=== PATIENT | male | born 1995 | race Hispanic/Latino ===

== ENCOUNTER 2016-07-11 19:25 | Emergency (ER) | payer OTHER ==
[~2016-07-11] VITALS: Ht 165.1 cm; Wt 62.0 kg
[~2016-07-11 19:25] MED LIST: HYDR-3797 PO
[2016-07-11 19:43] VITALS: BP 116/64; PULSE 71; RESP 20; O2SAT 97
[2016-07-11] MEDS ORDERED: Pantoprazole 4 mg/mL 10 mL Inj IVPUSH ONE (21:15)
[2016-07-11] MEDS ORDERED: 0.9% Sodium Chloride 1,000 ML IV ONE (21:15)
[2016-07-11] MEDS ORDERED: Ondansetron 2 mg/mL 2 mL Inj IVPUSH ONE (21:15)
--- NOTE | 2016-07-11 21:17 | ED.REPORT ---
HPI-Abd Pain M Under 40 Date of Service Jul 11, 2016 ED Provider: Vahid Luciano MD A 21 year old male with a history of renal calculi and a heart murmur presents to the ED with constant right flank pain onset six months ago, worsening today. The patient also reports nausea, intermittent diarrhea, and reduced appetite, as well as RLQ and epigastric abdominal pain. He denies vomiting, hematuria, or fever. The patient has been seen many times in the ED and by his PCP for these symptoms and was recently diagnosed with a renal calculi, which his urologist said he passed a few days ago. However, the patient's symptoms have not resolved. He denies prior abdominal surgeries. Nursing Notes Stated Complaint: RT SIDE PAIN Chief Complaint: Male Abdominal Pain Nursing Notes Reviewed: Yes Allergies: Coded Allergies: No Known Allergies (Verified Allergy, Unknown, 01/21/16) Scheduled PRN Hydroxyzine Pamoate (HydrOXYzine Pamoate) 25 Mg Capsule 25 MG PO Q6 PRN PRN For Anxiety or Agitation Ibuprofen (Ibuprofen) 600 Mg Tablet 600 MG PO QID PRN PRN For Pain General Time Seen by MD: 21:15 Chief Complaint Flank pain right Hx Obtained From: Patient Arrived By: Walk-in Sudden in Onset?: No Onset Occurred: More than a week ago... (six months ago, worsening today) Symptom Duration: Since onset Progression since Onset: Constant Location: : Epigastric: Flank right: RLQ Quality: Painful Severity: Current: Moderate Severity: Maximum: Moderate Associated with: Reports: Diarrhea, Nausea, Denies: Fever, Vomiting Pertinent Negative: Relieved by nothing Context Related History: Denies: Abdominal surgery Recent Healthcare: Recent doctor visit, Recent testing, Previous diagnosis Similar Sx Previous: Yes Past Medical History Past Medical History Heart murmur Calculus of kidney Past Surgical History None reported Reports: Tonsillectomy Smoking History Never Smoker Social History Alcohol Use: Denies alcohol use Drug Use: THC Ambulatory Status Independent Review of Systems Review of Systems Note: + Reduced appetite Constitutional: Denies: Fever Respiratory: Denies: Non-productive cough, Shortness of breath GI: Reports: Abdominal pain (RLQ and epigastric), Diarrhea (Intermittent), Nausea, Denies: Vomiting Male: Reports Flank pain (Right), Denies Hematuria Complete sys rev & neg: except as marked. Physical Exam Initial Vital Signs Vital Signs (First) Date Time Temp Pulse Resp B/P Pulse Ox O2 Delivery O2 Flow Rate FiO2 07/11/16 19:43 36.6 71 20 116/64 97 Room Air Initial VS: Reviewed Head / Eyes: Atraumatic, Normocephalic ENT: Conjunctiva normal, No scleral icterus Neck: Supple, Full range of motion Skin: Warm, Dry Neurologic: Alert, Oriented, Nonfocal Psychiatric: Mood/affect normal, Behavior normal, Normal thought content General/Constitutional: Awake, Alert, No acute distress, Well hydrated Respiratory / Chest: Breath sounds NL, Breath sounds = bilat, No respiratory distress Cardiovascular: Heart rate NL, Regular rhythm, Heart sounds NL Abdomen: Soft, BS normoactive Tenderness/Guarding/Rebound: Positive: Tender epigastric (Mild) Back: Inspection NL, No CVA tenderness Interpretation & Diagnostics URINE DIPSTICK: 1.005 sp gravity 7 pH Trace Protein Normal Glucose Normal Urobilinogen Otherwise Negative Lab Results Interpretation Result Diagram: 07/11/16213007/11/162130 Test 07/11/16 21:31 07/11/16 21:42 07/11/16 21:48 White Blood Count 10.2th/mm3 (3.8-10.1) Red Blood Count 4.74mil/mm3 (4.40-5.80) Hemoglobin 14.7g/dL (13.8-17.2) Hematocrit 40.8% (41.0-50.0) Mean Corpuscular Volume 86.1fL (81-100) Mean Corpuscular Hemoglobin 31.0pg (27.0-35.0) Mean Corpuscular Hemoglobin Concent 36.0% (32.0-37.0) Red Cell Distribution Width 12.3% (12.3-15.4) Platelet Count 318bil/L (150-400) Neutrophils (%) (Auto) 39.8% (40-74) Lymphocytes (%) (Auto) 48.7% (14-46) Monocytes (%) (Auto) 8.3% (4-12) Eosinophils (%) (Auto) 2.6% (0-5) Basophils (%) (Auto) 0.4% (0-3) Prothrombin Time 11.2sec (8.1-12.5) Prothromb Time International Ratio 1.05ratio Sodium Level 139mEq/L (134-144) Potassium Level 3.7mEq/L (3.5-5.2) Chloride Level 101mEq/L (97-108) Carbon Dioxide Level 25mmol/L (18-29) Blood Urea Nitrogen 14mg/dL (6-20) Creatinine 0.74mg/dL (0.76-1.27) Estimat Glomerular Filtration Rate 142mL/min (>59) Glucose Level 106mg/dL (60-99) Calcium Level 8.7mg/dL (8.5-10.1) Magnesium Level 2.2mg/dL (1.6-2.6) Total Bilirubin 0.5mg/dL (0.0-1.2) Aspartate Amino Transf (AST/SGOT) 18U/L (0-50) Alanine Aminotransferase (ALT/SGPT) 18U/L (0-44) Alkaline Phosphatase 48U/L (25-150) Total Protein 6.6g/dL (6.4-8.4) Albumin 4.5g/dL (3.4-5.0) Lipase 18U/L (13-60) Urine Color Yellow (YELLOW) Urine Appearance Hazy (CLEAR,HAZY) Urine pH 7.0 (5.0-8.0) Urine Specific [place] 1.020 (1.003-1.035) Urine Protein Negativemg/dL (NEG,TRACE) Urine Glucose (UA) Negativemg/dL (NEGATIVE) Urine Ketones Negativemg/dL (NEGATIVE) Urine Occult Blood Negative (NEGATIVE) Urine Nitrite Negative (NEGATIVE) Urine Bilirubin Negative (NEGATIVE) Urine Urobilinogen 1.0mg/dL (NORMAL) Urine Leukocyte Esterase Negative (NEGATIVE) Urine RBC 0-2/hpf (0-2) Urine WBC 0-5/hpf (0-5) Urine Epithelial Cells None/hpf (NONE-MOD) Urine Crystals Amorphous urates (NONE Urine Bacteria Few/hpf (NONE-FEW) Urine Hyaline Casts None/lpf (NONE) Urine Granular Casts None seen (NONE SEEN) Urine Waxy Casts None seen (NONE SEEN) Urine Red Blood Cell Casts None seen (NONE SEEN) Urine White Blood Cell Casts None seen (NONE SEEN) Urine Mucus None seen (None Seen) Urine Trichomonas None seen (NONE SEEN) Urine Yeast None (NONE SEEN) Urinalysis Comment None Urine Culture Reflexed Not indicated Lactic Acid Level 0.5mmol/L (0.4-2.0) CT Abd / Pelvis Interpretation CONCLUSION: No CT evidence of acute intra-abdominal pathology. Transmitted to ED by Antwan Cutler M.D. at 07/12/2016 - 1:19:52 AM PST Study type: Abdominal CT IV contrast, Abdom CT oral contrast Interpretation / Wet Read by: Interpret - Radiologist Re-Eval/Medical Decision Med Decision/Clinical Course 21-year-old with several presentations with flank pain and abdominal pain, once found to have kidney stones. He presents now with more of the same, essentially unrelenting for three months, but worse tonight. He has had no overt hematuria. No other specific findings. No vomiting no dysuria and no change in bowels denies constipation and no other associated findings. Labs were essentially unremarkable. CT again shows moderate stool but no other significant finding, and particularly no kidney stones or other renal findings. He does have a mild elevation of bilirubin only. No risk factors for gallstones in this young male. I suspect the source of his pain is primarily functional bowel, and review of his diet reveals that he is living primarily on fast food well working most days of the week. He was advised to increase his fiber intake with Metamucil or similar, if unable modify his diet. Given a milk of magnesia cleanout protocol for the next three days well establishing fiber intake. Follow up with PCP. Source of Hx: Old records Re-Evaluation/Progress #1: Time of Eval: 01:46 Patient Status: Condition improved Re-Evaluation/Progress Note: Discussed with patient CT and lab results, diagnosis, and plan for discharge. Follow-up and return to the ER instructions given. Patient agrees with plan for care and all questions were addressed. Re-Evaluation/Progress #2: Time of Eval: 01:57 Patient Status: Condition improved Re-Evaluation/Progress Note: Patient rechecked. He is ready to be discharged. Counseled Regarding: Diagnosis, Lab results, Need for follow-up, When/why to return to ED Patient Discharge & Departure Primary Impression: Right flank pain Additional Impression: Constipation Constipation type: unspecified constipation type Qualified Code: K59.00 - Constipation, unspecified Disposition: Home Discharge Condition All VS Reviewed: Yes Condition: Improved Patient Instructions: Acute Abdominal Pain (ED), Constipation (ED) Additional Instructions: Take milk of magnesia a tablespoon nightly for three nights. Ibuprofen 600 mg four times a day for pain. We find no evidence of kidney stone at this point, no other evidence of mass or other pathology of concern. This may boil out to be musculoskeletal in character, or functional bowel. I am assuming that constipation is playing something of a role here See if you are feeling better after a brief mild cleanout. Follow-up with your doctor in the office. You may follow up at [facility] residency clinic if needed. Referrals: NOPCP (PCP) [facility] Scribe Attestation Portions of this note were transcribed by Vikki Smith. I, Dr. Luciano, personally performed the history, physical exam, and medical decision-making; I reviewed and confirmed the accuracy of the information in the transcribed note. Signed by: Marita Huizar, 07/12/2016, 02:10 copies to: [facility] Vahid Luciano MD Jul 11, 2016 21:17 VIKKI SMITH Jul 11, 2016 21:29
[2016-07-11 21:44] LABS: BASOPHILS % (AUTO) 0.4 % (0-3); EOSINOPHILS % (AUTO) 2.6 % (0-5); MONOCYTES % (AUTO) 8.3 % (4-12); Mean Corpuscular Volume 86.1 fL (81-100); NEUTROPHILS % (AUTO) 39.8 % (40-74); Platelet Count 318 bil/L (150-400)
[2016-07-11 21:50] LABS: APPEARANCE,URINE HAZY (CLEAR,HAZY); COLOR,URINE YELLOW (YELLOW)
[2016-07-11 21:51] LABS: OCCULT BLOOD,URINE NEGATIVE (NEGATIVE)
[2016-07-11] MEDS ORDERED: Iohexol 300 mg/mL 30 mL Inj PO ONE (21:55)
[2016-07-11 22:01] LABS: INR 1.05 ratio
[2016-07-11 22:06] LABS: Magnesium 2.2 mg/dL (1.6-2.6)
[2016-07-11 23:08] VITALS: BP 110/73; PULSE 64; RESP 14; O2SAT 98
[2016-07-12] MEDS ORDERED: IBUP-1827 PO (01:54)
[2016-07-12] MEDS ORDERED: Magnesium Hydroxide 10 mL Oral Concentration PO ONE (01:55)
[2016-07-12 02:08] VITALS: BP 103/57; PULSE 55; RESP 16; O2SAT 100
--- NOTE | 2016-07-12 11:01 | DRSVH ---
PROCEDURE: CT ABDOMEN AND PELVIS WITH CONTRAST (PNL-7102) INDICATIONS: rt flank and rlq abdo pain, epigastric pain TECHNIQUE: After the administration of intravenous contrast, 5 mm thick sections acquired from the diaphragm to the symphysis. 5 mm coronal and sagittal reformats were acquired. For radiation dose reduction, the following was used: automated exposure control, adjustment of mA and/or kV according to patient siz e. COMPARISON: None. FINDINGS: Image quality: Excellent. ABDOMEN: Lung bases: Lung bases are clear. Heart size is normal. Solid organs: Liver is mildly enlarged with steatosis. The spleen is normal in size and enhancement. Gallbladder is unremarkable. Biliary system is non dilated. Pancreas enhances normally. No adren al nodules. Kidneys demonstrate normal size and enhancement, without hydronephrosis. Peritoneum and bowel: Bowel loops demonstrate normal wall thickness and caliber. No free fluid or a ir. Appendix is within normal limits. Nodes and vessels: No retroperitoneal or mesenteric adenopathy by size criteria. Aorta and inferior vena cava are normal in size. Miscellaneous: No ventral hernias. PELVIS: Genitourinary: Bladder wall thickness is normal. Miscellaneous: No inguinal hernias or adenopathy. Bones: No suspicious bony lesions. No vertebral body compression fractures. IMPRESSION: 1. No acute abdominal or pelvic pathology to account for pain. 2. Appendix is unremarkable. Dictated by: Adenike Aguayo M.D. on 07/12/2016 at 10:56 Approved by: Adenike Aguayo M.D. on 07/12/2016 at 10:59
== END 2016-07-12 02:01 | disposition home or self-care (01) ==
LOC: SED 19:25
DX: K59.00 Constipation, unspecified (principal); R10.31 Right lower quadrant pain; R19.7 Diarrhea, unspecified; R11.0 Nausea; R63.0 Anorexia; Z87.442 Personal history of urinary calculi
CPT/HCPCS: 36415; 74177; 80053; 81000; 83605; 83690; 83735; 85025; 85610; 96361; 96374; 96375; 99285; J2405; J7030; Q9967

== ENCOUNTER 2016-11-10 02:44 | Emergency (ER) | payer OTHER ==
[~2016-11-10] VITALS: Ht 165.1 cm; Wt 63.6 kg
[~2016-11-10 02:44] MED LIST changes: +IBUP-1827 PO
[2016-11-10 02:54] VITALS: BP 123/72; PULSE 84; RESP 14; O2SAT 100
[2016-11-10 03:58] LABS: BASOPHILS % (AUTO) 0.1 % (0-3); EOSINOPHILS % (AUTO) 0.8 % (0-5); MONOCYTES % (AUTO) 6.1 % (4-12); Mean Corpuscular Hemoglobin 30.9 pg (27.0-35.0); Mean Corpuscular Volume 87.1 fL (81-100); NEUTROPHILS % (AUTO) 84.6 % (40-74); Platelet Count 290 bil/L (150-400)
[2016-11-10 04:23] LABS: Magnesium 1.9 mg/dL (1.6-2.6)
--- NOTE | 2016-11-10 04:28 | ED.REPORT ---
HPI-NVD Date of Service Nov 10, 2016 ED Provider: Fer Fam MD A 21 year old male with a history of heart murmur and calculus of the kidney presents to the ED complaining of vomiting. The pt ate [employer] at 14:00 today , and began vomiting at 15:00. This was accompanied by abdominal pain and diarrhea, though he denies fever. The pt believes that his symptoms are due to the meal that he ate at 14:00. Nursing Notes Stated Complaint: VOMITING, ABDOMINAL PAIN Chief Complaint: Male Abdominal Pain Nursing Notes Reviewed: Yes Allergies: Coded Allergies: No Known Allergies (Verified Allergy, Unknown, 01/21/16) Scheduled PRN Hydroxyzine Pamoate (HydrOXYzine Pamoate) 25 Mg Capsule 25 MG PO Q6 PRN PRN For Anxiety or Agitation Ibuprofen (Ibuprofen) 600 Mg Tablet 600 MG PO QID PRN PRN For Pain General Time Seen by MD: 04:27 Chief Complaint Vomiting Hx Obtained From: Patient Arrived By: Walk-in Onset Occurred: 13 - 16 hours ago Recent Healthcare: No recent hospitalization, Recent doctor visit Similar Sx Previous: No Past Medical History Past Medical History Heart murmur Calculus of kidney Past Surgical History None reported Reports: Tonsillectomy Smoking History Never Smoker Social History Alcohol Use: Denies alcohol use Drug Use: THC Ambulatory Status Independent Review of Systems Constitutional: Denies: Fever GI: Reports: Abdominal pain, Diarrhea, Nausea, Vomiting Skin: Denies Rash Complete sys rev & neg: except as marked. Respiratory: Denies: Non-productive cough, Shortness of breath Cardiovascular: Denies: Chest pain Physical Exam Initial Vital Signs Vital Signs (First) Date Time Temp Pulse Resp B/P Pulse Ox O2 Delivery O2 Flow Rate FiO2 11/10/16 02:54 36.3 84 14 123/72 100 Room Air Initial VS: Reviewed, Vital signs normal General/Constitutional: Awake, Alert appears dehydrated and pale Abdomen: Atraumatic, Soft diffuse abdominal tenderness ENT: Atraumatic, Airway patent, Mucous membranes moist Respiratory / Chest: Atraumatic, Breath sounds NL, Breath sounds = bilat, No respiratory distress Cardiovascular: Heart rate NL, Regular rhythm, Heart sounds NL Back: Atraumatic, Full range of motion Skin: Color NL, No rash, Warm, Dry Neurologic: Oriented X3, Speech NL, No motor deficits, No sensory deficits Head / Eyes: Atraumatic, Normocephalic, PERRL, EOMI Neck: Atraumatic, Supple, Full range of motion Upper Extremity / MS: Atraumatic, Full range of motion Lower Extremity / Pelvis / MS: Atraumatic, Full range of motion Psychiatric: Affect NL, Mood NL Interpretation & Diagnostics Lab Results Interpretation Result Diagram: 11/10/16 0350 11/10/16 0350 Test 11/10/16 03:50 11/10/16 06:00 White Blood Count 14.4th/mm3 (3.8-10.1) Red Blood Count 5.21mil/mm3 (4.40-5.80) Hemoglobin 16.1g/dL (13.8-17.2) Hematocrit 45.4% (41.0-50.0) Mean Corpuscular Volume 87.1fL (81-100) Mean Corpuscular Hemoglobin 30.9pg (27.0-35.0) Mean Corpuscular Hemoglobin Concent 35.5% (32.0-37.0) Red Cell Distribution Width 12.1% (12.3-15.4) Platelet Count 290bil/L (150-400) Neutrophils (%) (Auto) 84.6% (40-74) Lymphocytes (%) (Auto) 8.1% (14-46) Monocytes (%) (Auto) 6.1% (4-12) Eosinophils (%) (Auto) 0.8% (0-5) Basophils (%) (Auto) 0.1% (0-3) Sodium Level 141mEq/L (134-144) Potassium Level 4.0mEq/L (3.5-5.2) Chloride Level 100mEq/L (97-108) Carbon Dioxide Level 26mmol/L (18-29) Blood Urea Nitrogen 15mg/dL (6-20) Creatinine 0.72mg/dL (0.76-1.27) Estimat Glomerular Filtration Rate 146mL/min (>59) Glucose Level 123mg/dL (60-99) Calcium Level 9.6mg/dL (8.5-10.1) Magnesium Level 1.9mg/dL (1.6-2.6) Total Bilirubin 0.6mg/dL (0.0-1.2) Aspartate Amino Transf (AST/SGOT) 13U/L (0-50) Alanine Aminotransferase (ALT/SGPT) 14U/L (0-44) Alkaline Phosphatase 50U/L (25-150) Total Protein 7.5g/dL (6.4-8.4) Albumin 4.7g/dL (3.4-5.0) Lipase 16U/L (13-60) Hold Urine Received (Received) Lab Results Interpretation: Elevated white blood count Re-Eval/Medical Decision Med Decision/Clinical Course 21-year-old male with diffuse abdominal pain, nausea, vomiting, and diarrhea. His pain seems localized along the right side and he has a 14,000 white count. Ultrasound was done which showed a noncompressible upper limits normal appendix. CT scan was then done which showed normal appendix and no other significant abnormalities. There does see to be a predominance of nondistended fluid-filled loops of bowel possibly consistent with gastroenteritis. He will be discharged home with instructions to use Imodium and follow-up with his primary doctor if the diarrhea symptoms persist or he gets bloody diarrhea. Source of Hx: Old records Re-Evaluation/Progress : Time of Eval: 06:32 Re-Evaluation/Progress Note: Pt rechecked, who is resting. The pt is still experiencing diffuse abdominal pain and pain in the RLQ. Counseled Regarding: Diagnosis, Lab results, Need for follow-up, When/why to return to ED Discharge & Departure Impression: Primary Impression: Gastroenteritis Disposition: Home Discharge Condition All VS Reviewed: Yes Condition: Stable Patient Instructions: Gastroenteritis (ED) Additional Instructions: There is no evidence on CT of acute appendicitis. I suspect that your symptoms are secondary to a viral gastroenteritis or foodborne illness. Use over-the- counter Imodium as needed to slow or stop the diarrhea. If the diarrhea persists for more than 5 days or becomes bloody, you need to have it rechecked to make sure that is not a treatable bacterial infection. Referrals: [facility] Scribmarli Attestation Portions of this note were transcribed by Selena Salguero. I, Dr. Fam personally performed the history, physical exam and medical decision-making; I reviewed and confirmed the accuracy of the information in the transcribed note. Signed by: Marita Skinner, 11/10/2016 and 0655. copies to: [facility] Fer Fam MD Nov 10, 2016 04:28 SELENA SALGUERO Nov 10, 2016 04:57
[2016-11-10] MEDS ORDERED: 0.9% Sodium Chloride 1,000 ML IV ONE ×2 (04:55→05:25)
[2016-11-10] MEDS ORDERED: Ondansetron 2 mg/mL 2 mL Inj IVPUSH PRN (04:55)
[2016-11-10 05:40] VITALS: BP 113/58; PULSE 92; RESP 16; O2SAT 98
--- NOTE | 2016-11-10 08:16 | DRSVH ---
PROCEDURE: US APPENDIX INDICATIONS: abd pain TECHNIQUE: Real-time focused scanning was performed of the abdomen with attention to the appendix, with image do cumentation. COMPARISON: None. FINDINGS: Appendix visualization: Yes Appendix measurements: 5.5 mm diameter with single wall thickness of 1.2-2.2 mm. Associated findings: Echogenic fat: Absent Appendiceal compressibility: Noncompressible Appendicoliths: Not seen Nearby free fluid: Absent Lymphadenopathy: Absent Tenderness on exam: Mild IMPRESSION: Appendix is visualized and shows normal caliber with no appendicoliths or hyperemia and no surroundin g fluid collection or inflammation. The appendix however appears noncompressible with mild tenderness on compression. This can be an early sign of acute appendicitis and clinical correlation is required . Report called to Dr. Fam in the ER at 0813 hrs. on 11/10/2016 Dictated by: Jose Enrique Canales M.D. on 11/10/2016 at 8:08 Approved by: Jose Enrique Canales M.D. on 11/10/2016 at 8:14
--- NOTE | 2016-11-10 08:24 | DRSVH ---
PROCEDURE: CT ABDOMEN AND PELVIS WITH CONTRAST (PNL-7102) INDICATIONS: diffuse abd pain, elev WBC, prob nl appendix on US TECHNIQUE: After the administration of intravenous contrast, 5 mm thick sections acquired from the diaphragm to the symphysis. 5 mm coronal and sagittal reformats were acquired. For radiation dose reduction, the following was used: automated exposure control, adjustment of mA and/or kV according to patient dona calles. COMPARISON: [facility], CT, CT ABD PELVIS W CON, 07/12/2016, 0:20. FINDINGS: Image quality: Excellent. ABDOMEN: Lung bases: Lung bases are clear. Heart size is normal. Solid organs: Liver and spleen are normal in size and enhancement. Gallbladder is within normal bo its. Biliary system is non dilated. Pancreas enhances normally. No adrenal nodules. Kidneys demon strate normal size and enhancement, without hydronephrosis. Peritoneum and bowel: Bowel loops demonstrate normal wall thickness and caliber. No free fluid or a ir. Nodes and vessels: No retroperitoneal or mesenteric adenopathy by size criteria. Aorta and inferior vena cava are normal in size. Miscellaneous: No ventral hernias. PELVIS: Genitourinary: Bladder wall thickness is normal. Miscellaneous: No inguinal hernias or adenopathy. Bones: No suspicious bony lesions. No vertebral body compression fractures. IMPRESSION: 1. No acute disease process. 2. The appendix is normal. 3. No free fluid or air. 4. No dilated loops of bowel. Dictated by: Cheryle St MD, PhD on 11/10/2016 at 8:17 Approved by: Cheryle St MD, PhD on 11/10/2016 at 8:22
[2016-11-10] MEDS ORDERED: Ondansetron 2 mg/mL 2 mL Inj IVPUSH ONE (08:50)
[2016-11-10] MEDS ORDERED: ONDA8TAB10 PO (08:56)
[2016-11-10 09:14] VITALS: BP 113/65; PULSE 72; RESP 16; O2SAT 99
== END 2016-11-10 09:16 | disposition home or self-care (01) ==
LOC: SED 02:44
DX: K52.9 Noninfective gastroenteritis and colitis, unspecified (principal); Z87.442 Personal history of urinary calculi
CPT/HCPCS: 36415; 74177; 76705; 80053; 83690; 83735; 85025; 96361; 96374; 96376; 99285; J2405; J7030; Q9967